=== PATIENT | female | born 1990 | race Hispanic/Latino ===

== ENCOUNTER 2019-03-26 06:44 | Emergency (ER) | payer BC ==
[~2019-03-26] VITALS: Ht 160 cm; Wt 68.0 kg
[2019-03-26] MEDS ORDERED: ACETAMINOPHEN-1 EAC1 PO (06:56)
[2019-03-26] MEDS ORDERED: IBU-200200 MG PO (06:57)
[2019-03-26] MEDS ORDERED: NEOMYCIN-POLYMY10 M1 OTIC (07:00)
[2019-03-26] MEDS ORDERED: NORCO 5-325 TA1 EACH PO (08:07)
[2019-03-27] MEDS ORDERED: NORCO 5-325 TA1 EACH PO (23:34)
[2019-03-27] MEDS ORDERED: CEPHALEXIN500 MG PO (23:34)
== END 2019-03-26 08:49 | disposition home or self-care (01) ==
LOC: ED 06:44
DX: H60.91 Unspecified otitis externa, right ear (principal); F17.200 Nicotine dependence, unspecified, uncomplicated
CPT/HCPCS: 96372; 99282; J1170

== ENCOUNTER 2019-03-27 19:31 | Emergency (ER) | payer BC ==
[~2019-03-27] VITALS: Ht 160 cm; Wt 68.0 kg
[~2019-03-27 19:31] MED LIST: ACETAMINOPHEN-1 EAC1 PO; IBU-200200 MG PO; NEOMYCIN-POLYMY10 M1 OTIC; NORCO 5-325 TA1 EACH PO
--- OUTSIDE RECORDS SUMMARY | 2019-03-27 19:34 | XMS ---
PreManage Notification: GINNA RAHMAN [employer] Events No recent Security Events currently on file CRITERIA MET - [facility] - [facility] - 2 Visits in 30 Days CARE PROVIDERS There are no care providers on record at this time. Radha has no Care Guidelines for this patient. [facility] NOTE: Visits indicate total known visits. ED/C VISIT TRACKING (12 MO.) 03/27/2019 19:[address] [facility] [place] TYPE: Emergency COMPLAINT: - EAR ACHE 03/26/2019 06:46 [facility] [place] TYPE: Emergency COMPLAINT: - EAR PAIN INPATIENT VISIT TRACKING (12 MO.) No inpatient visits to display in this time frame [id number]
[2019-03-27] MEDS ORDERED: NORCO 5-325 TA1 EACH PO (23:34)
[2019-03-27] MEDS ORDERED: CEPHALEXIN500 MG PO (23:34)
== END 2019-03-27 23:42 | disposition home or self-care (01) ==
LOC: ED 19:31
DX: H60.91 Unspecified otitis externa, right ear (principal); F17.200 Nicotine dependence, unspecified, uncomplicated
CPT/HCPCS: 99282